=== PATIENT | female | born 1995 | race Caucasian/White ===

== ENCOUNTER 2016-11-29 08:41 | Emergency (ER) | payer OTHER ==
[~2016-11-29] VITALS: Ht 167.6 cm; Wt 68.5 kg
[2016-11-29 09:34] LABS: HEMOGLOBIN 11.3 g/dL (11.7-16.4)
[2016-11-29 09:46] LABS: BLOOD UREA NITROGEN 10 mg/dL (7-18)
[2016-11-29 09:49] LABS: ASPARTATE AMINO TRANSFERASE 13 U/L (15-37)
[2016-11-29 10:04] VITALS: BP 113/52
[2016-11-29] MEDS ORDERED: CEFTRIAXONE 1,000 MG ONE (11:55)
[2016-11-29] MEDS ORDERED: CEFTRIAXONE 1,000 MG IM ONE (12:00)
== END 2016-11-29 12:16 | disposition home or self-care (01) ==
LOC: ED 12:10
DX: O23.02 Infections of kidney in pregnancy, second trimester (principal); Z3A.26 26 weeks gestation of pregnancy
CPT/HCPCS: 36415; 76770; 76815; 80053; 81001; 85025; 87077; 87086; 87147; 87186; 96372; 99285; J0696

== ENCOUNTER 2016-12-27 10:25 | Outpatient (CLI) | payer OTHER ==
[~2016-12-27] VITALS: Ht 165.1 cm; Wt 71.8 kg
[~2016-12-27 10:25] MED LIST: ACET325T14 PO; CEFP100T PO; FERR47.57 PO; HYDR1TAB12 PO; PREN1TAB60 PO
[2016-12-27 10:40] VITALS: BP 103/55
== END 2016-12-27 11:35 | disposition home or self-care (01) ==
LOC: LDOP 10:25
PROVIDERS: ATTEND Obstetrics & Gynecology
DX: O26.893 Other specified pregnancy related conditions, third trimester (principal); R10.9 Unspecified abdominal pain
CPT/HCPCS: 59025; 99211; G0463

== ENCOUNTER 2017-03-02 13:09 | Outpatient (CLI) | payer OTHER ==
[~2017-03-02] VITALS: Ht 167.6 cm; Wt 79.5 kg
[2017-03-02 13:18] VITALS: BP 128/81
== END 2017-03-02 14:10 | disposition home or self-care (01) ==
LOC: LDOP 13:09
PROVIDERS: ATTEND Obstetrics & Gynecology
DX: O42.92 Full-term premature rupture of membranes, unspecified as to length of time between rupture and onset of labor (principal); Z3A.39 39 weeks gestation of pregnancy
CPT/HCPCS: 59025; 89060; 99211; G0463; Q0114